=== PATIENT | male | born 2000 | race Caucasian/White ===

== ENCOUNTER 2021-11-01 02:13 | Emergency (ER) | payer SELFPAY ==
[~2021-11-01] VITALS: Ht 182.9 cm; Wt 93.2 kg
[2021-11-01 02:15] VITALS: TEMP 98
[2021-11-01 03:31] VITALS: BP 127/71; PULSE 68
== END 2021-11-01 03:33 | disposition home or self-care (01) ==
LOC: COL.ER 02:13
DX: S60.221A Contusion of right hand, initial encounter (principal); R03.0 Elevated blood-pressure reading, without diagnosis of hypertension; Z87.891 Personal history of nicotine dependence; W22.01XA Walked into wall, initial encounter